=== PATIENT | male | born 1995 | race Two or more races ===

== ENCOUNTER 2021-12-30 12:14 | Emergency (ER) | payer SELFPAY ==
[~2021-12-30] VITALS: Ht 170.2 cm; Wt 72.6 kg
[2021-12-30 12:20] VITALS: BP 116/75
[2021-12-30] MEDS ORDERED: SODIUM CHLORIDE 0.9% 1,000 ML IVB ONE (12:30)
[2021-12-30 14:56] LABS: Basophils # (auto) 0.1 10 ^3/uL (0-0.2); Basophils % (auto) 0.5 % (0.0-2.0); Eosinophils # (auto) 0 10 ^3/uL (0-0.8); Eosinophils % (auto) 0.2 % (0.0-7.0); Hematocrit 49.1 % (41.0-53.0); Hemoglobin 17.1 g/dL (13.5-17.5); Lymphocytes # (auto) 1.3 10 ^3/uL (0.4-5.4); Lymphocytes % (auto) 12.4 % (10.0-50.0); Mean Corpuscular Hemoglobin 32.9 pg (28.0-32.0); Mean Corpuscular Hgb Conc. 34.9 g/dL (32.0-36.0); Mean Corpuscular Volume 94.2 fL (80.0-100.0); Monocytes # (auto) 0.2 10 ^3/uL (0-1.3); Monocytes % (auto) 2.4 % (0.0-12.0); Neutrophils # (auto) 8.7 10 ^3/uL (1.6-8.6); Neutrophils % (auto) 84.5 % (37.0-80.0); Nucleated Red Blood Cells % 0.8 %; Red Blood Cells 5.21 10^6/uL (4.5-5.90); Red Cell Distribution Width 11.9 % (11.8-14.3); White Blood Cell 10.3 10^3/uL (4.4-10.8)
[2021-12-30 15:20] LABS: Albumin 3.6 g/dL (3.4-5.0); Calcium 9.3 mg/dL (8.5-10.1)
[2021-12-30 15:22] LABS: BUN/Creatinine Ratio 6.5; Bilirubin, Total 0.3 mg/dL (0.2-1.0); Total Protein 8.1 g/dL (6.4-8.2)
== END 2021-12-30 15:30 | disposition home or self-care (01) ==
LOC: EDBD 12:14 → ER 12:14
DX: F10.129 Alcohol abuse with intoxication, unspecified (principal); Y90.9 Presence of alcohol in blood, level not specified; Z53.29 Procedure and treatment not carried out because of patient's decision for other reasons
CPT/HCPCS: 36415; 80053; 80320; 85025

== ENCOUNTER 2022-01-17 05:52 | Emergency (ER) | payer OTHER ==
[~2022-01-17] VITALS: Ht 175.3 cm; Wt 90.7 kg
[2022-01-17 05:59] VITALS: BP 142/74
== END 2022-01-17 06:53 | disposition left against medical advice (07) ==
LOC: EDBD 05:52 → ER 05:52
DX: F41.9 Anxiety disorder, unspecified (principal); Z53.21 Procedure and treatment not carried out due to patient leaving prior to being seen by health care provider